=== PATIENT | female | born 1965 | race Caucasian/White ===

== ENCOUNTER 2020-08-04 09:31 | Outpatient (REF) | payer MEDICARE, OTHER, SELFPAY ==
--- NOTE | 2020-08-04 09:35 | CT_ITS ---
EXAMINATION: CT CHEST WITHOUT CONTRAST CLINICAL INFORMATION: Follow-up pulmonary nodules COMPARISON: Previous chest CT scans most recent June 2019 TECHNIQUE: Multidetector volumetric CT imaging of the chest was done. Axial MIP volume rendering provided. Sagittal and coronal reformatted images were obtained. This CT examination was performed using dose optimization techniques as appropriate, variously including the following: *Automated exposure control *Adjustment of mA and/or kV according to patient size (this includes techniques or standardized protocols for targeted exams where dose is matched to indication/reason for exam; i.e. extremities or head) *Use of iterative reconstruction technique DLP: 184 mGy-cm FINDINGS: LUNGS: The small pulmonary nodules are stable. Largest pulmonary nodule is a 4 mm peripheral or subpleural right lower lobe nodule axial image 357 series 7. The lungs are otherwise clear. There is mild emphysema. No evidence of bronchiectasis or interstitial disease is seen. No endobronchial or endotracheal lesion is seen. MEDIASTINUM: The mediastinum is normal. PLEURA: There is no pleural effusion. No pleural mass or thickening. AXILLA: No lymphadenopathy. UPPER ABDOMEN: There is a small stone in the upper pole of the left kidney measuring 2 mm. OSSEOUS STRUCTURES: There are mild degenerative changes of the spine. CT/CT chest wo con IMPRESSION: Stable small pulmonary nodules. Mild emphysema. Small left renal stone.
== END 2020-08-04 09:32 | disposition home or self-care (01) ==
LOC: HO.CT 09:31
PROVIDERS: Visit Provider Internal Medicine
DX: R91.1 Solitary pulmonary nodule (principal)
CPT/HCPCS: 71250

== ENCOUNTER 2020-11-01 15:11 | Emergency (ER) | payer MEDICARE, OTHER, SELFPAY ==
--- NOTE | ~2020-11-01 | CT_ITS ---
EXAMINATION: CT CHEST WITH CONTRAST CT ABDOMEN AND PELVIS WITH CONTRAST CLINICAL INFORMATION: Trauma to the right chest wall. COMPARISON: Chest CT of 08/04/2020, 08/04/2020, 06/13/2019, 05/02/2018, 01/01/2017. Chest x-ray of 08/08/2019. TECHNIQUE: Multidetector volumetric CT imaging of the chest, abdomen and pelvis is acquired following intravenous administration of 85 mL of Omnipaque 350. Postprocessing is performed at a dedicated workstation. Multiplanar reformatted images are submitted. This CT scan was performed using dose optimization techniques as appropriate to a performed exam including the following: *Automated exposure control *Adjustment of mA and/or kV according to patient size (this includes techniques or standardized protocols for targeted exams were dose is matched to indication/reason for exam; i.e. extremities or head) *Use of iterative reconstruction technique DLP: 878 mGy-cm FINDINGS: CHEST: There is no evidence of pneumothorax, pneumomediastinum, pleural effusions or pericardial effusion. No mediastinal vascular injury or mediastinal hematoma. No evidence of axillary, mediastinal or hilar adenopathy. The visualized thyroid gland is unremarkable. The trachea and central bronchi are well patent. Small tracheal diverticulum on the right posterolateral aspect (series 5 image 6) is a stable finding. Central pulmonary arteries and aorta are well opacified. The central pulmonary arteries and aorta are normal in caliber. Ascending aorta measures 3.4 cm in maximum AP diameter at the level of right main pulmonary artery. Mild changes of centrilobular emphysema, greater in the right upper lobe are again noted. A few scattered subcentimeter pleural-based nodules, greater on the right compared to left are again noted with the largest one in the right lower lobe (series 7 image 290) posterolaterally measuring 0.4 cm. No new significant nodules or pulmonary findings are seen. The visualized chest wall soft tissues are unremarkable. ABDOMEN AND PELVIS: The liver is normal in size, shape and attenuation. A 0.4 cm low-attenuation at the hepatic dome (series 13 image 10) and a 0.5 cm low-attenuation lesion in the posterior right hepatic lobe (series 13 image 18) are too small to characterize accurately, however, statistically likely represent cysts or hemangiomas. The gallbladder, biliary tree, pancreas, adrenal glands, spleen and kidneys are unremarkable. No hydroureter. The bladder is well distended and unremarkable. The uterus is normal in size. Low-attenuation is noted in the posterior left uterine body (series 13 image 71), may represent a small fibroid. The ovaries and adnexa are unremarkable. There is no evidence of free intraperitoneal air or fluid. No evidence of pathologically enlarged lymph nodes. Vasculature is unremarkable except for minimal focal calcific atherosclerosis of the aorta and iliac arteries. The stomach is distended with ingested material. Appendix is normal. No abnormal bowel dilatation is noted. Moderate to extensive diverticulosis of the sigmoid colon and mild diverticulosis of the descending colon, without evidence of acute diverticulitis. A few scattered right-sided colonic diverticula are also noted. No evidence of colonic wall thickening or pericolonic fat stranding. Mild thickening of the skin is noted in the right flank anterolaterally with stranding in the adjacent superficial and deep subcutaneous fat, likely reflecting changes of stated trauma. No evidence of significant abdominal wall hernia. OSSEOUS STRUCTURES: There is no evidence of acute osseous abnormality in the chest, abdomen and pelvis. No suspicious osseous lesion noted. CT/CT abdomen pelvis w con IMPRESSION: 1. Mild skin thickening in the right flank with stranding of the subcutaneous fat in the region is noted; findings likely reflect changes related to stated right-sided trauma. Otherwise no evidence of acute intra-abdominal injury. 2. No acute intrathoracic abnormality. 3. Mild changes of emphysema. A few scattered pulmonary nodules with the largest one in the right lower lobe measuring 0.4 cm are stable since the previous CT of 2017 and are benign. No further followup of these nodules is recommended. No definite new pulmonary findings are noted. 4. Colonic diverticulosis without acute diverticulitis. 5. A few subcentimeter low-attenuation liver lesions are too small to characterize, however, statistically likely represent cysts or hemangiomas. 6. A 1.3 cm low-attenuation lesion in the left posterior uterine body, probably a small fibroid. Ultrasound correlation may be acquired, if warranted.
[2020-11-01 15:19] VITALS: BP 146/82; PULSE 67; RESP 18; TEMP 36.8; O2SAT 98
[2020-11-01 15:20] VITALS: BP 146/82; PULSE 67; RESP 18; TEMP 36.8; O2SAT 100; BMI 30.9
--- NOTE | 2020-11-01 15:32 | ED.FALL ---
HPI - Fall General Chief Complaint: Fall Stated Complaint: FALL 2 DAYS AGO Time Seen by Provider: 11/01/20 15:16 History of Present Illness HPI Narrative: This is a 55 years old female presented by ambulance complaining of right chest wall pain right-sided flank pain. She states that she fell a couple of days ago down a couple stairs since then she is complaining of severe right chest wall pain and right-sided abdominal pain complaint: fall Onset (ago): day(s) (2) Fall from: down stairs (#) (2) Place fall occurred: home Loss of consciousness: none Prolonged down time: no Symptoms prior to fall: none Associated symptoms (after fall): denies Related Data Allergies Allergy/AdvReac Type Severity Reaction Status Date / Time prednisone [PREDNISONE] Allergy Severe PSYCHOSIS Unverified 04/17/20 18:59 Review of Systems Review of Systems: Yes all other systems are reviewed and are negative Cardiovascular: Cardiovascular: Denies diaphoresis, Denies syncope and Denies rapid heart rate Respiratory: Respiratory: Denies cough and Denies hemoptysis Neurologic: Reports as per HPI and Denies syncope [facility] Past Medical History Medical History No known health problems Social History Social History Advance Directives: No Advance Directives Information Provided: No Physical Exam Vital Signs: Vital Signs: Last Vital Signs Temp 98.3 F 11/01/20 15:20 Pulse 67 11/01/20 15:20 Resp 18 11/01/20 15:20 BP 146/82 H 11/01/20 15:20 Pulse Ox 100 11/01/20 15:20 Body Mass Index 30.9 Const: Other: Patient appear in mild distress Orientation/consciousness: oriented to person, oriented to place, oriented to time and patient oriented x3 HENMT: Head: Yes normal to inspection Ears: external ears normal General nose exam: Normal external nose present Face and sinus: Yes normal facial exam Eyes: General: appearance normal, both eyes and all related structures Neck: Other: Neck is supple no tenderness in the cervical spine whatsoever full range of motion Chest: Other: Tenderness in the right chest wall bruises noted in the right chest wall Resp: Auscultation: clear to auscultation bilaterally Cardio: Rate: regular rate GI: Other: Abdomen is soft she has right flank tenderness she has hematoma in the right flank Skin: General skin exam: no rashes or lesions noted, elasticity normal and turgor normal Neuro: General: oriented to person, oriented to place, oriented to time and patient oriented x3 Extrem: General: Yes normal to inspection, Yes full ROM, Yes capillary refill normal and Yes normal exam except as noted Course Reevaluation(s) Reevaluation #1: CT chest abdomen are pending at this time case will be signed out to the incoming attending Dr. Howell Time: 16:37 fall Lab Data Result diagrams: 11/01/20 15:35 11/01/20 15:35 Labs: Lab Results 11/01/20 11/01/20 11/01/20 Range/Units 15:35 15:35 15:35 WBC 7.5 (4.8-10.8) X10*3/uL RBC 4.35 (4.20-5.50) X10*6/uL Hgb 13.9 (12.0-16.0) g/dl Hct 42.7 (37-47) % MCV 98.2 H (80-98) fL MCH 32.0 (27.0-33.0) pg MCHC 32.6 (31.0-35.0) g/dl RDW 11.6 (11.0-16.0) % Plt Count 214 (160-400) X10*3/uL MPV 10.9 (9.4-12.3) fL Immature Gran % (Auto) 0.1 (0.0-0.4) % Neut % (Auto) 72.1 (45-73) % Lymph % (Auto) 20.8 (20-40) % [place] % (Auto) 4.8 (2-11) % Eos % (Auto) 1.5 (0-4) % Baso % (Auto) 0.7 (0-2) % Lymph # (Auto) 1.6 (1.2-4.9) X10*3/uL [place] # (Auto) 0.4 (0.1-1.2) X10*3/uL Eos # (Auto) 0.1 (0.0-0.4) X10*3/uL Baso # (Auto) 0.1 (0.0-0.2) X10*3/uL Abs Immat Gran (auto) 0.01 (0.00-0.03) X10*3/uL Absolute Neuts (auto) 5.4 (2.0-8.3) X10*3/uL Absolute Nucleated RBC 0.000 (0.0-0.012) X10*3/uL Nucleated RBC % (auto) 0.0 (0.0-0.2) /100WBC PT 11.1 (10.8-13.0) SEC INR 0.9 (0.9-1.1) APTT 37.2 (24.1-38.0) SEC Sodium 140 (135-145) mmol/L Potassium 3.7 (3.3-5.1) mmol/L Chloride 103 (96-108) mmol/L Carbon Dioxide 28 (22-29) mmol/L Anion Gap 13 (12-20) BUN 14 (9-16) mg/dL Creatinine 0.78 (0.5-1.4) mg/dL Estim Creat Clear Calc 83.2 Estimated GFR > 60 Random Glucose 104 (60-115) mg/dL Calcium 9.1 (8.4-10.2) mg/dL Total Bilirubin 0.5 (0.0-1.0) mg/dL AST 26 (5-31) U/L ALT 35 H (0-31) U/L Alkaline Phosphatase 90 (39-117) U/L Total Protein 7.2 (6.5-8.0) g/dL Albumin 4.3 (3.5-5.0) g/dL
[2020-11-01] MEDS: fentaNYL citrate/PF 100 MCG/2 ML VIAL 50 MCG IVPUSH (15:36)
[2020-11-01 15:40] LABS: MANUAL DIFF FLAG NO
[2020-11-01 15:42] LABS: Basophils Absolute Auto 0.1 X10*3/uL (0.0-0.2); Basophils Percent Auto 0.7 % (0-2); Eosinophils Absolute Auto 0.1 X10*3/uL (0.0-0.4); Eosinophils Percent Auto 1.5 % (0-4); Hematocrit 42.7 % (37-47); Hemoglobin 13.9 g/dl (12.0-16.0); Imm Gran Abs Auto 0.01 X10*3/uL (0.00-0.03); Imm Gran Pct Auto 0.1 % (0.0-0.4); Lymphocytes Absolute Auto 1.6 X10*3/uL (1.2-4.9); Lymphocytes Percent Auto 20.8 % (20-40); Mean Corpuscular HGB Conc 32.6 g/dl (31.0-35.0); Mean Corpuscular Volume 98.2 fL (80-98); Mean Platelet Volume 10.9 fL (9.4-12.3); Monocytes Absolute Auto 0.4 X10*3/uL (0.1-1.2); Monocytes Percent Auto 4.8 % (2-11); Neutrophils Absolute Auto 5.4 X10*3/uL (2.0-8.3); Neutrophils Percent Auto 72.1 % (45-73); Platelet Count 214 X10*3/uL (160-400); Red Blood Count 4.35 X10*6/uL (4.20-5.50); Red Cell Distribution Width 11.6 % (11.0-16.0); White Blood Count 7.5 X10*3/uL (4.8-10.8)
[2020-11-01 15:47] LABS: INTERNATIONAL NORM RATIO 0.9 (0.9-1.1); Prothrombin Time 11.1 SEC (10.8-13.0)
[2020-11-01 15:50] LABS: Partial Thromboplastin Time 37.2 SEC (24.1-38.0)
[2020-11-01 16:09] LABS: Alanine Aminotransferase 35 U/L (0-31); Albumin Level 4.3 g/dL (3.5-5.0); Alkaline Phosphatase 90 U/L (39-117); Anion Gap 13 (12-20); Aspartate Amino Transferase 26 U/L (5-31); Bilirubin Total 0.5 mg/dL (0.0-1.0); Blood Urea Nitrogen 14 mg/dL (9-16); Calcium 9.1 mg/dL (8.4-10.2); Carbon Dioxide 28 mmol/L (22-29); Chloride 103 mmol/L (96-108); Creatinine Clr Calc Pharmacy 83.2; Estimated Glomerular Filt Rate > 60; Glucose Random 104 mg/dL (60-115); Potassium 3.7 mmol/L (3.3-5.1); Sodium 140 mmol/L (135-145); Total Protein 7.2 g/dL (6.5-8.0)
[2020-11-01] MEDS: iohexoL 350 MG/ML 75 ML INFUS..BTL IV (16:31)
[2020-11-01 17:41] VITALS: BP 117/72; PULSE 59; RESP 14; TEMP 36.6; O2SAT 98
[2020-11-01 18:12] VITALS: RESP 18
[2020-11-01] MEDS: Morphine Sulfate 4 MG/ML CARTRIDGE IVPUSH (18:12)
== END 2020-11-01 18:18 | disposition home or self-care (01) ==
PROVIDERS: Emergency Medicine; Emergency Provider Emergency Medicine; PCP Internal Medicine
DX: M94.0 Chondrocostal junction syndrome [Tietze] (principal); S20.211A Contusion of right front wall of thorax, initial encounter; W10.8XXA Fall (on) (from) other stairs and steps, initial encounter; Y93.9 Activity, unspecified; Y92.019 Unspecified place in single-family (private) house as the place of occurrence of the external cause; Y99.9 Unspecified external cause status
CPT/HCPCS: 36415; 71260; 74177; 80053; 85025; 85610; 85730; 96374; 96375; 99284; J2270; J3010; Q9967